=== PATIENT | female | born 1995 | race African-American/Black ===

== ENCOUNTER 2017-02-12 18:45 | Emergency (ER) | payer MEDICAID, BC ==
[2017-02-12 19:35] LABS: HEMOGLOBIN 13.1 g/dL (12-16); MCH 27.3 pg (26.0-34.0); MCHC 33.6 g/dL (31.0-37.0); MCV 81.3 fL (80.0-100.0); MEAN PLATELET VOLUME 10.2 fL (7.4-10.4); PLATELET COUNT 149 10x3/uL (130-400); RDW 13.2 % (11.5-14.5); WBC 2.9 10x3/uL (4.8-10.8)
[2017-02-12 19:50] LABS: ALBUMIN 3.1 g/dL (3.4-5.0); ALKALINE PHOSPHATASE 56 U/L (46-116); ALT (SGPT) 24 U/L (10-68); BILIRUBIN - TOTAL 0.17 mg/dL (0.2-1.3); CALC OSMOLALITY 273 mosm/kg (275-300); CALCIUM 8.6 mg/dL (8.5-10.1); CARBON DIOXIDE 25.4 mmol/L (21.0-32.0); CHLORIDE - SERUM 104 mmol/L (98-107); CREATININE - SERUM 0.7 mg/dL (0.6-1.3); GLUCOSE 92 mg/dL (74-106); POTASSIUM - SERUM 3.6 mmol/L (3.5-5.1); PROTEIN - SERUM 7.8 g/dL (6.4-8.2); SODIUM 138 mmol/L (136-145); UREA NITROGEN 7 mg/dL (7-18); eGFR NON AFRICAN AMERICAN > 90 mL/min (90-120)
[2017-02-12 20:01] LABS: HCG SERUM NEGATIVE (NEGATIVE)
[2017-02-12 20:11] LABS: EOSINOPHILS 3 % (0-7); LYMPHOCYTES 28 % (15-50); MONOCYTES 8 % (2-11); NEUTROPHILS 61 % (40-80); PLATELET ESTIMATE NORMAL
[2017-02-12 20:46] LABS: AMYLASE - SERUM 44 U/L (25-115); LIPASE 182 U/L (73-393)
[2017-02-12 21:02] LABS: APPEARANCE CLEAR (CLEAR); BILIRUBIN NEGATIVE (NEGATIVE); COLOR YELLOW (YELLOW); GLUCOSE NEGATIVE (NEGATIVE); KETONE NEGATIVE (NEGATIVE); LEUKOCYTE ESTERASE NEGATIVE (NEGATIVE); NITRITE NEGATIVE (NEGATIVE); PROTEIN NEGATIVE (NEGATIVE); UROBILINOGEN NORMAL (NORMAL)
== END 2017-02-12 22:06 | disposition home or self-care (01) ==
LOC: D.ER 18:45
PROVIDERS: Emergency Medicine; Physician Assistant
DX: R10.12 Left upper quadrant pain (principal); K52.9 Noninfective gastroenteritis and colitis, unspecified; D72.819 Decreased white blood cell count, unspecified

== ENCOUNTER 2017-12-30 11:15 | Emergency (ER) | payer MEDICAID | END 2017-12-30 13:07 | disposition home or self-care (01) | LOC: D.ER 11:15 | DX: G43.909 Migraine, unspecified, not intractable, without status migrainosus (principal) ==

== ENCOUNTER 2018-02-23 18:44 | Emergency (ER) | payer MEDICAID ==
[~2018-02-23] VITALS: Ht 165.1 cm; Wt 102.7 kg
[2018-02-23 19:01] VITALS: Ht 165.1 cm; Wt 102.7 kg
[2018-02-23 19:37] LABS: HCG URINE NEGATIVE (NEGATIVE)
[2018-02-23 19:38] LABS: APPEARANCE CLOUDY (CLEAR); BILIRUBIN NEGATIVE (NEGATIVE); COLOR YELLOW (YELLOW); GLUCOSE NEGATIVE (NEGATIVE); KETONE NEGATIVE (NEGATIVE); NITRITE NEGATIVE (NEGATIVE); PROTEIN NEGATIVE (NEGATIVE); UROBILINOGEN NORMAL (NORMAL); WHITE CELLS - URINE 0-5 /hpf (0-5)
[2018-02-23 19:39] LABS: AMORPHOUS SEDIMENT >1+ /lpf (NONE SEEN)
[2018-02-23] MEDS ORDERED: DIFLUCAN150 MG PO (20:44)
[2018-02-23 21:48] VITALS: BP 121/79
[2018-02-23 22:11] LABS: UDS - AMPHET NEGATIVE QUAL (NEGATIVE); UDS - BARB NEGATIVE QUAL (NEGATIVE); UDS - BENZO NEGATIVE QUAL (NEGATIVE); UDS - COCAINE NEGATIVE QUAL (NEGATIVE); UDS - OPIATE NEGATIVE QUAL (NEGATIVE); UDS - PCP NEGATIVE QUAL (NEGATIVE); UDS - THC NEGATIVE QUAL (NEGATIVE)
== END 2018-02-23 21:48 | disposition home or self-care (01) ==
LOC: D.ER 18:44
PROVIDERS: Family Medicine
DX: K12.0 Recurrent oral aphthae (principal); B37.3 Candidiasis of vulva and vagina

== ENCOUNTER 2018-05-24 17:33 | Emergency (ER) | payer MEDICAID ==
[~2018-05-24 17:33] MED LIST: DIFLUCAN150 MG PO
[2018-05-24 17:41] VITALS: Ht 165.1 cm
[2018-05-24 18:34] LABS: APPEARANCE TURBID (CLEAR); COLOR RED (YELLOW); SPECIFIC GRAVITY 1.025 (1.005-1.020)
[2018-05-24 18:35] LABS: BACTERIA NONE SEEN /hpf (NONE SEEN); BILIRUBIN NEGATIVE (NEGATIVE); EPITHELIAL CELLS 0-5 /hpf (0-5); GLUCOSE NEGATIVE (NEGATIVE); KETONE NEGATIVE (NEGATIVE); NITRITE NEGATIVE (NEGATIVE); PROTEIN 2+ mg/dL (NEGATIVE); RED CELLS - URINE >50 /hpf (0-5); UROBILINOGEN NORMAL (NORMAL)
[2018-05-24 18:42] LABS: BASOPHILS 0.1 % (0-2); EOSINOPHILS 1.2 % (0-7); HEMATOCRIT 38.9 % (36.0-48.0); HEMOGLOBIN 13.4 g/dL (12-16); IMMATURE GRANULOCYTES 0.3 % (0-5); LYMPHOCYTES 30.4 % (15-50); MCH 27.2 pg (26.0-34.0); MCHC 34.4 g/dL (31.0-37.0); MCV 78.9 fL (80.0-100.0); MONOCYTES 5.9 % (2-11); NEUTROPHILS 62.1 % (40-80); RBC 4.93 10x6/uL (4.00-5.40); RDW 13.3 % (11.5-14.5); WBC 7.3 10x3/uL (4.8-10.8)
[2018-05-24 18:44] LABS: PLATELET COUNT 239 10x3/uL (130-400)
[2018-05-24 19:00] LABS: ALBUMIN 3.2 g/dL (3.4-5.0); ALKALINE PHOSPHATASE 57 U/L (46-116); ALT (SGPT) 22 U/L (10-68); BILIRUBIN - TOTAL 0.28 mg/dL (0.2-1.3); CALC OSMOLALITY 273 mosm/kg (275-300); CARBON DIOXIDE 23.1 mmol/L (21.0-32.0); CHLORIDE - SERUM 103 mmol/L (98-107); CREATININE - SERUM 0.6 mg/dL (0.6-1.3); GLUCOSE 95 mg/dL (74-106); LIPASE 172 U/L (73-393); POTASSIUM - SERUM 4.4 mmol/L (3.5-5.1); PROTEIN - SERUM 8.4 g/dL (6.4-8.2); SODIUM 138 mmol/L (136-145); UREA NITROGEN 6 mg/dL (7-18); eGFR NON AFRICAN AMERICAN > 90 mL/min (90-120)
[2018-05-24] MEDS ORDERED: VOLTAREN75 MG PO (21:01)
[2018-05-24] MEDS ORDERED: MACROBID100 MG PO (21:01)
[2018-05-24 21:23] VITALS: BP 132/80
== END 2018-05-24 21:23 | disposition home or self-care (01) ==
LOC: D.ER 17:33
PROVIDERS: Emergency Medicine
DX: N39.0 Urinary tract infection, site not specified (principal); R10.30 Lower abdominal pain, unspecified

== ENCOUNTER 2018-07-23 12:28 | Emergency (ER) | payer MEDICAID ==
[2018-07-23 13:49] LABS: BASOPHILS 0.2 % (0-2); EOSINOPHILS 3.3 % (0-7); HEMATOCRIT 39.4 % (36.0-48.0); HEMOGLOBIN 13.2 g/dL (12-16); IMMATURE GRANULOCYTES 0.2 % (0-5); LYMPHOCYTES 28.6 % (15-50); MCH 26.9 pg (26.0-34.0); MCHC 33.5 g/dL (31.0-37.0); MCV 80.4 fL (80.0-100.0); MEAN PLATELET VOLUME 9.8 fL (7.4-10.4); MONOCYTES 8.1 % (2-11); NEUTROPHILS 59.6 % (40-80); PLATELET COUNT 199 10x3/uL (130-400); RDW 13.3 % (11.5-14.5); WBC 9.9 10x3/uL (4.8-10.8)
== END 2018-07-23 14:19 | disposition home or self-care (01) ==
LOC: D.ER 12:28
PROVIDERS: Family Medicine
DX: R05 Cough (principal); R09.89 Other specified symptoms and signs involving the circulatory and respiratory systems; R51 Headache; R07.81 Pleurodynia; R06.2 Wheezing

== ENCOUNTER 2018-11-27 03:54 | Emergency (ER) | payer SELFPAY ==
[~2018-11-27 03:54] MED LIST changes: +MACROBID100 MG PO; +VENTOLIN HFA18 GM INH; +VOLTAREN75 MG PO
[2018-11-27 05:00] LABS: HCG URINE NEGATIVE (NEGATIVE)
[2018-11-27 05:00] LABS: APPEARANCE CLEAR (CLEAR); BILIRUBIN NEGATIVE (NEGATIVE); COLOR YELLOW (YELLOW); GLUCOSE NEGATIVE (NEGATIVE); KETONE NEGATIVE (NEGATIVE); NITRITE NEGATIVE (NEGATIVE); PROTEIN NEGATIVE (NEGATIVE); UROBILINOGEN NORMAL (NORMAL)
[2018-11-27] MEDS ORDERED: ALBUTEROL SULF8.5 GM INH (05:10)
[2018-11-27] MEDS ORDERED: KEFLEX500 MG PO (05:10)
[2018-11-27] MEDS ORDERED: TYLENOL W/CODEI1 TAB PO (05:11)
== END 2018-11-27 05:20 | disposition home or self-care (01) ==
LOC: D.ER 03:54
PROVIDERS: Emergency Medicine
DX: J02.9 Acute pharyngitis, unspecified (principal); R51 Headache; J45.909 Unspecified asthma, uncomplicated

== ENCOUNTER 2019-01-28 14:53 | Emergency (ER) | payer SELFPAY ==
[~2019-01-28] VITALS: Ht 165.1 cm; Wt 106.6 kg
[~2019-01-28 14:53] MED LIST changes: +ALBUTEROL SULF8.5 GM INH; +KEFLEX500 MG PO; +TYLENOL W/CODEI1 TAB PO
[2019-01-28 15:02] VITALS: Ht 165.1 cm; Wt 106.6 kg
[2019-01-28] MEDS ORDERED: KETOPROFEN200 MG PO (17:09)
[2019-01-28 17:23] VITALS: BP 124/73
== END 2019-01-28 17:23 | disposition home or self-care (01) ==
LOC: D.ER 14:53
DX: G44.209 Tension-type headache, unspecified, not intractable (principal)

== ENCOUNTER 2019-01-30 13:38 | Emergency (ER) | payer SELFPAY ==
[~2019-01-30] VITALS: Ht 165.1 cm; Wt 104.5 kg
[~2019-01-30 13:38] MED LIST changes: +KETOPROFEN200 MG PO
[2019-01-30 13:48] VITALS: Ht 165.1 cm; Wt 104.5 kg
[2019-01-30] MEDS ORDERED: ROBAXIN500 MG PO (16:52)
[2019-01-30] MEDS ORDERED: TORADOL10 MG PO (16:52)
[2019-01-30 17:40] VITALS: BP 122/88
== END 2019-01-30 17:40 | disposition home or self-care (01) ==
LOC: D.ER 13:38
DX: S16.1XXA Strain of muscle, fascia and tendon at neck level, initial encounter (principal); V43.52XA Car driver injured in collision with other type car in traffic accident, initial encounter; Y92.410 Unspecified street and highway as the place of occurrence of the external cause; S39.012A Strain of muscle, fascia and tendon of lower back, initial encounter

== ENCOUNTER 2019-03-25 20:19 | Emergency (ER) | payer SELFPAY ==
[~2019-03-25] VITALS: Ht 165.1 cm; Wt 101.1 kg
[~2019-03-25 20:19] MED LIST changes: +ROBAXIN500 MG PO; +TORADOL10 MG PO
[2019-03-25 20:25] VITALS: BP 116/82; Ht 165.1 cm; Wt 101.1 kg
[2019-03-25 20:46] LABS: BASOPHILS 0.2 % (0-2); EOSINOPHILS 1.1 % (0-7); HEMATOCRIT 36.4 % (36.0-48.0); HEMOGLOBIN 12.5 g/dL (12-16); IMMATURE GRANULOCYTES 0.2 % (0-5); LYMPHOCYTES 40.5 % (15-50); MCH 27.2 pg (26.0-34.0); MCHC 34.3 g/dL (31.0-37.0); MCV 79.3 fL (80.0-100.0); MEAN PLATELET VOLUME 9.9 fL (7.4-10.4); MONOCYTES 5.9 % (2-11); NEUTROPHILS 52.1 % (40-80); PLATELET COUNT 188 10x3/uL (130-400); RBC 4.59 10x6/uL (4.00-5.40); RDW 13.5 % (11.5-14.5); WBC 6.3 10x3/uL (4.8-10.8)
[2019-03-25 20:47] LABS: APPEARANCE CLEAR (CLEAR); BILIRUBIN NEGATIVE (NEGATIVE); COLOR YELLOW (YELLOW); GLUCOSE NEGATIVE (NEGATIVE); KETONE NEGATIVE (NEGATIVE); NITRITE NEGATIVE (NEGATIVE); PROTEIN NEGATIVE (NEGATIVE); SPECIFIC GRAVITY 1.015 (1.005-1.020); UROBILINOGEN NORMAL (NORMAL)
[2019-03-25 20:48] LABS: EPITHELIAL CELLS 0-5 /hpf (0-5); WHITE CELLS - URINE 0-5 /hpf (0-5)
[2019-03-25 21:01] LABS: ALBUMIN 2.8 g/dL (3.4-5.0); ALKALINE PHOSPHATASE 48 U/L (46-116); ALT (SGPT) 13 U/L (10-68); BILIRUBIN - TOTAL 0.23 mg/dL (0.2-1.3); CALC OSMOLALITY 273 mosm/kg (275-300); CARBON DIOXIDE 22.8 mmol/L (21.0-32.0); CHLORIDE - SERUM 106 mmol/L (98-107); CREATININE - SERUM 0.6 mg/dL (0.6-1.3); GLUCOSE 81 mg/dL (74-106); PROTEIN - SERUM 7.5 g/dL (6.4-8.2); SODIUM 139 mmol/L (136-145); UREA NITROGEN 5 mg/dL (7-18); eGFR NON AFRICAN AMERICAN > 90 mL/min (90-120)
[2019-03-25 21:27] LABS: AMYLASE - SERUM 45 U/L (25-115); HCG - QUANTITATIVE (MATERNAL) 32616 mIU/mL; LIPASE 186 U/L (73-393)
== END 2019-03-25 22:47 | disposition home or self-care (01) ==
LOC: D.ER 20:19
PROVIDERS: Emergency Medicine
DX: R10.11 Right upper quadrant pain (principal)

== ENCOUNTER → 2019-08-26 08:01 | Outpatient (CLI) | payer MEDICAID ==
[2019-03-25 20:25] VITALS: BMI 37.0
[2019-08-26 11:06] LABS: APPEARANCE CLOUDY (CLEAR); BILIRUBIN NEGATIVE (NEGATIVE); COLOR YELLOW (YELLOW); GLUCOSE NEGATIVE (NEGATIVE); KETONE NEGATIVE (NEGATIVE); NITRITE NEGATIVE (NEGATIVE); PROTEIN TRACE mg/dL (NEGATIVE); UROBILINOGEN NORMAL (NORMAL)
[2019-08-26 11:10] LABS: WHITE CELLS - URINE 0-5 /hpf (NEGATIVE)
[2019-08-26 11:11] LABS: BACTERIA MODERATE /hpf (NEGATIVE); RED CELLS - URINE NONE SEEN /hpf (0-5)
[2019-08-27 10:26] LABS: PROTEIN - URINE 18.1 mg/dL (0.0-11.9)
== END | disposition home or self-care (01) ==
LOC: D.LDO 08:01
PROVIDERS: ATTEND Obstetrics & Gynecology
DX: O26.899 Other specified pregnancy related conditions, unspecified trimester (principal); Z3A.00 Weeks of gestation of pregnancy not specified; R10.9 Unspecified abdominal pain

== ENCOUNTER 2019-10-25 06:35 | Emergency (ER) | payer MEDICAID ==
[~2019-10-25] VITALS: Ht 165.1 cm; Wt 99.5 kg
[~2019-10-25 06:35] MED LIST changes: +HYDROCODON-ACE1 EA10 PO; +IBUPROFEN600 MG PO; +PRENAVITE1 TAB PO; +TAMIFLU75 MG PO
[2019-10-25 06:42] VITALS: Ht 165.1 cm; Wt 99.5 kg
[2019-10-25 07:30] LABS: HCG URINE NEGATIVE (NEGATIVE)
[2019-10-25 07:46] LABS: CALC OSMOLALITY 277 mosm/kg (275-300); CALCIUM 8.8 mg/dL (8.5-10.1); CARBON DIOXIDE 28.3 mmol/L (21.0-32.0); CHLORIDE - SERUM 104 mmol/L (98-107); CREATININE - SERUM 0.8 mg/dL (0.6-1.3); GLUCOSE 97 mg/dL (74-106); POTASSIUM - SERUM 3.9 mmol/L (3.5-5.1); SODIUM 140 mmol/L (136-145); UREA NITROGEN 10 mg/dL (7-18); eGFR NON AFRICAN AMERICAN > 90 mL/min (90-120)
[2019-10-25 07:49] LABS: BASOPHILS 0.1 % (0-2); HEMATOCRIT 36.2 % (36.0-48.0); HEMOGLOBIN 12.1 g/dL (12-16); IMMATURE GRANULOCYTES 0.1 % (0-5); LYMPHOCYTES 29.7 % (15-50); MCH 26.8 pg (26.0-34.0); MCHC 33.4 g/dL (31.0-37.0); MCV 80.1 fL (80.0-100.0); MEAN PLATELET VOLUME 9.9 fL (7.4-10.4); MONOCYTES 6.8 % (2-11); NEUTROPHILS 60.3 % (40-80); RBC 4.52 10x6/uL (4.00-5.40); RDW 13.6 % (11.5-14.5); WBC 6.9 10x3/uL (4.8-10.8)
[2019-10-25 07:50] LABS: PLATELET COUNT 192 10x3/uL (130-400)
[2019-10-25 07:55] LABS: ALBUMIN 3.1 g/dL (3.4-5.0); ALKALINE PHOSPHATASE 67 U/L (30-120); ALT (SGPT) 29 U/L (10-68); AMYLASE - SERUM 48 U/L (25-115); BILIRUBIN - TOTAL 0.44 mg/dL (0.2-1.3); LIPASE 210 U/L (73-393); PROTEIN - SERUM 7.8 g/dL (6.4-8.2); TROPONIN-I < 0.017 ng/mL (0.000-0.060)
[2019-10-25 08:05] LABS: BACTERIA FEW /hpf (NEGATIVE); BILIRUBIN NEGATIVE (NEGATIVE); EPITHELIAL CELLS OCC /hpf (0-5); GLUCOSE NEGATIVE (NEGATIVE); KETONE NEGATIVE (NEGATIVE); NITRITE NEGATIVE (NEGATIVE); RED CELLS - URINE RARE /hpf (0-5); UROBILINOGEN NORMAL (NORMAL); WHITE CELLS - URINE 0-5 /hpf (NEGATIVE)
[2019-10-25] MEDS ORDERED: HYDROCODON-ACE1 EAC7 PO (08:50)
[2019-10-25 09:00] VITALS: BP 147/87
== END 2019-10-25 09:16 | disposition home or self-care (01) ==
LOC: D.ER 06:35
PROVIDERS: Family Medicine
DX: K80.20 Calculus of gallbladder without cholecystitis without obstruction (principal)

== ENCOUNTER 2019-12-09 18:18 | Emergency (ER) | payer OTHER ==
[~2019-12-09] VITALS: Ht 165.1 cm; Wt 100.0 kg
[~2019-12-09 18:18] MED LIST changes: +HYDROCODON-ACE1 EAC7 PO
[2019-12-09 18:24] VITALS: Ht 165.1 cm; Wt 100.0 kg
[2019-12-09] MEDS ORDERED: AUGMENTIN 875-11 TAB PO (19:39)
[2019-12-09] MEDS ORDERED: MEDROL DOSE PACK4 MG PO (19:39)
[2019-12-09] MEDS ORDERED: ZITHROMAX500 MG PO (19:39)
[2019-12-09 19:44] LABS: BASOPHILS 0.1 % (0-2); EOSINOPHILS 1.8 % (0-7); HEMATOCRIT 40.4 % (36.0-48.0); HEMOGLOBIN 12.8 g/dL (12-16); LYMPHOCYTES 30.2 % (15-50); MCH 25.8 pg (26.0-34.0); MCHC 31.7 g/dL (31.0-37.0); MCV 81.3 fL (80.0-100.0); MEAN PLATELET VOLUME 9.5 fL (7.4-10.4); NEUTROPHILS 60.9 % (40-80); RBC 4.97 10x6/uL (4.00-5.40); RDW 13.8 % (11.5-14.5); WBC 7.1 10x3/uL (4.8-10.8)
[2019-12-09 19:45] LABS: PLATELET COUNT 241 10x3/uL (130-400)
[2019-12-09 20:03] LABS: CALC OSMOLALITY 267 mosm/kg (275-300); CALCIUM 8.7 mg/dL (8.5-10.1); CARBON DIOXIDE 28.3 mmol/L (21.0-32.0); CHLORIDE - SERUM 103 mmol/L (98-107); CREATININE - SERUM 0.6 mg/dL (0.6-1.3); GLUCOSE 83 mg/dL (74-106); POTASSIUM - SERUM 3.9 mmol/L (3.5-5.1); SODIUM 135 mmol/L (136-145); UREA NITROGEN 11 mg/dL (7-18); eGFR NON AFRICAN AMERICAN > 90 mL/min (90-120)
[2019-12-09 20:11] VITALS: BP 120/66
[2019-12-09 20:21] LABS: ALBUMIN 3.1 g/dL (3.4-5.0); ALKALINE PHOSPHATASE 82 U/L (30-120); ALT (SGPT) 45 U/L (10-68); BILIRUBIN - TOTAL 0.26 mg/dL (0.2-1.3); C-REACTIVE PROTEIN 0.2 mg/dL (0.0-0.9); FERRITIN 23 ng/mL (3-244)
== END 2019-12-09 20:11 | disposition home or self-care (01) ==
LOC: D.ER 18:18
PROVIDERS: Emergency Medicine
DX: S09.90XA Unspecified injury of head, initial encounter (principal); V89.2XXA Person injured in unspecified motor-vehicle accident, traffic, initial encounter; Y93.9 Activity, unspecified; Y92.9 Unspecified place or not applicable; S16.1XXA Strain of muscle, fascia and tendon at neck level, initial encounter; S00.83XA Contusion of other part of head, initial encounter; M54.5 Low back pain; J18.9 Pneumonia, unspecified organism; S59.911A Unspecified injury of right forearm, initial encounter

== ENCOUNTER 2019-12-17 15:02 | Emergency (ER) | payer MEDICAID ==
[~2019-12-17] VITALS: Ht 165.1 cm; Wt 100.0 kg
[~2019-12-17 15:02] MED LIST changes: +AUGMENTIN 875-11 TAB PO; +MEDROL DOSE PACK4 MG PO; +ZITHROMAX500 MG PO
[2019-12-17 15:10] VITALS: Ht 165.1 cm; Wt 100.0 kg
[2019-12-17] MEDS ORDERED: EC-NAPROSYN500 MG PO (16:13)
[2019-12-17] MEDS ORDERED: PREDNISONE5 MG PO (16:13)
[2019-12-17 16:21] VITALS: BP 136/80
== END 2019-12-17 16:22 | disposition home or self-care (01) ==
LOC: D.ER 15:02
DX: J18.1 Lobar pneumonia, unspecified organism (principal); M94.0 Chondrocostal junction syndrome [Tietze]; M54.9 Dorsalgia, unspecified; R07.9 Chest pain, unspecified; M54.2 Cervicalgia

== ENCOUNTER 2020-05-05 20:34 | Emergency (ER) | payer MEDICAID ==
[~2020-05-05] VITALS: Ht 165.1 cm; Wt 104.5 kg
[~2020-05-05 20:34] MED LIST changes: +EC-NAPROSYN500 MG PO; +PREDNISONE5 MG PO
[2020-05-05 20:41] VITALS: Ht 165.1 cm; Wt 104.5 kg
[2020-05-05] MEDS ORDERED: NAPROSYN500 MG PO (23:16)
[2020-05-05 23:32] VITALS: BP 121/88
== END 2020-05-05 23:32 | disposition home or self-care (01) ==
LOC: D.ER 20:34
DX: R07.89 Other chest pain (principal)

== ENCOUNTER 2020-05-10 05:22 | Day surgery (SDC) | payer MEDICAID ==
[~2020-05-10] VITALS: Ht 165.1 cm; Wt 104.8 kg
[~2020-05-10 05:22] MED LIST changes: +NAPROSYN500 MG PO
[2020-05-10 05:37] LABS: BASOPHILS 0.3 % (0-2); EOSINOPHILS 1.9 % (0-7); HEMATOCRIT 37.9 % (36.0-48.0); HEMOGLOBIN 12.6 g/dL (12-16); IMMATURE GRANULOCYTES 0.2 % (0-5); LYMPHOCYTES 40.9 % (15-50); MCH 26.6 pg (26.0-34.0); MCHC 33.2 g/dL (31.0-37.0); MEAN PLATELET VOLUME 9.2 fL (7.4-10.4); MONOCYTES 10.7 % (2-11); PLATELET COUNT 220 10x3/uL (130-400); RBC 4.74 10x6/uL (4.00-5.40); RDW 13.6 % (11.5-14.5); WBC 6.3 10x3/uL (4.8-10.8)
[2020-05-10 06:09] LABS: CALC OSMOLALITY 273 mosm/kg (275-300); CALCIUM 9.1 mg/dL (8.5-10.1); CARBON DIOXIDE 23.1 mmol/L (21.0-32.0); CHLORIDE - SERUM 105 mmol/L (98-107); CREATININE - SERUM 0.8 mg/dL (0.6-1.3); POTASSIUM - SERUM 3.7 mmol/L (3.5-5.1); SODIUM 137 mmol/L (136-145); UREA NITROGEN 7 mg/dL (7-18); eGFR NON AFRICAN AMERICAN > 90 mL/min (90-120)
[2020-05-10 06:27] LABS: GLUCOSE 128 mg/dL (74-106)
[2020-05-10 06:41] LABS: HCG SERUM NEGATIVE (NEGATIVE)
[2020-05-10 06:42] VITALS: BP 121/88; Ht 165.1 cm; Wt 104.8 kg
[2020-05-10] MEDS ORDERED: HYDROCODON-ACE1 EA10 PO (09:01)
--- NOTE | 2020-05-10 09:57 | NUR ---
0950-RECD TO ROOM FROM PACU. POST LAP CHOLEY. DROWSY. IV PATENT, 2ND BAG OF IVF UP. DENIES NAUSEA.
--- NOTE | 2020-05-10 10:46 | NUR ---
1040 IV REMOVED AND PT VOIDED. 1050 EATING JELLO REQUESTED A PAIN PILL PRIOR TO D/C
--- NOTE | 2020-05-14 09:49 | OP ---
PATIENT NAME: ALANA HUERTA MEDICAL RECORD: [id number] :97 LOCATION:D.OPS ADMISSION DATE: SURGEON: ALLISON COLEY MD DATE OF OPERATION: 05/10/2020 PREOPERATIVE DIAGNOSES: 1. Gallstones. 2. Obesity with a BMI of 38. POSTOPERATIVE DIAGNOSES: 1. Gallstones. 2. Obesity with a BMI of 38. PROCEDURE: Laparoscopic cholecystectomy. SURGEON: Allison Coley MD REPORT OF PROCEDURE: The patient's abdomen was prepped and draped in sterile fashion. A cutdown was made on the superior aspect of the umbilicus, 0 Vicryls were placed in the fascia bilaterally and the fascia was incised with 15-blade. I then bluntly entered the peritoneal cavity and placed a 12-mm Scottie port. Under direct visualization, a 5 mm trocar was placed in the epigastrium and 2 more 5-mm trocars were placed in the right subcostal region. The gallbladder was grasped and elevated. There were no signs of any inflammatory changes. The cystic artery and cystic duct were dissected free and these were clipped proximally and distally and ligated in standard fashion. The gallbladder was then taken off the liver bed using electrocautery and placed into an Endo Catch bag. The right upper quadrant was then irrigated out with normal saline and any signs of bleeding was treated with electrocautery. At this point, the ports and insufflation were then removed and the gallbladder was taken out through the umbilicus. The umbilical fascia was closed with interrupted 0 Vicryls times 3. The wounds were then irrigated out with normal saline and infused with 10 mL of 0.25% Marcaine with epinephrine. The skin incisions were all closed with subcutaneous 5-0 Monocryl and dressed appropriately. COMPLICATIONS: None. CONDITION: Stable. ANESTHESIA: General endotracheal and local. BLOOD LOSS: Minimal. TRANSINT:[id number] Voice Confirmation ID: [id number] DOCUMENT ID: [id number] ALLISON COLEY MD at 0949 CC: [id number] DICTATION DATE: 05/10/2004 PERSONAL ASSISTANT: 05/10/201956 [facility] 05/10[address]20 [place] [address]
== END 2020-05-10 11:42 | disposition home or self-care (01) ==
LOC: D.OPS 05:22
PROVIDERS: Anesthesiology; ATTEND Surgery
DX: K80.20 Calculus of gallbladder without cholecystitis without obstruction (principal); E66.9 Obesity, unspecified; Z68.38 Body mass index [BMI] 38.0-38.9, adult

== ENCOUNTER 2020-10-13 00:17 | Emergency (ER) | payer MEDICAID ==
[~2020-10-13] VITALS: Ht 165.1 cm; Wt 109.1 kg
[2020-10-13 00:22] VITALS: Ht 165.1 cm; Wt 109.1 kg
[2020-10-13 01:07] LABS: HCG URINE NEGATIVE (NEGATIVE)
[2020-10-13 01:17] LABS: BILIRUBIN NEGATIVE (NEGATIVE); KETONE NEGATIVE (NEGATIVE); NITRITE NEGATIVE (NEGATIVE); UROBILINOGEN NORMAL mg/dL (< 2)
[2020-10-13 01:18] LABS: BACTERIA MANY HPF (NONE SEEN)
[2020-10-13] MEDS ORDERED: OMNICEF300 MG PO (02:01)
[2020-10-13 02:28] VITALS: BP 128/84
== END 2020-10-13 02:04 | disposition home or self-care (01) ==
LOC: D.ER 00:17
PROVIDERS: Family Medicine
DX: N39.0 Urinary tract infection, site not specified (principal); B37.3 Candidiasis of vulva and vagina

== ENCOUNTER 2020-12-07 18:19 | Emergency (ER) | payer OTHER ==
[~2020-12-07] VITALS: Ht 165.1 cm; Wt 109.1 kg
[~2020-12-07 18:19] MED LIST changes: +OMNICEF300 MG PO
[2020-12-07 18:26] VITALS: BP 127/84; Ht 165.1 cm; Wt 109.1 kg
[2020-12-07] MEDS ORDERED: CYCLOBENZAPRINE10 MG PO (18:50)
[2020-12-07] MEDS ORDERED: ACETAMINOPHEN500 M1 PO (18:50)
[2020-12-07] MEDS ORDERED: IBUPROFEN800 MG PO (18:50)
== END 2020-12-07 19:12 | disposition home or self-care (01) ==
LOC: D.ER 18:19
DX: S93.401A Sprain of unspecified ligament of right ankle, initial encounter (principal); M79.10 Myalgia, unspecified site; W18.43XA Slipping, tripping and stumbling without falling due to stepping from one level to another, initial encounter; Y93.9 Activity, unspecified; Y92.9 Unspecified place or not applicable